=== PATIENT | male | born 1945 | race Caucasian/White ===

== ENCOUNTER 2021-03-09 10:45 | Outpatient (CLI) | payer MEDICARE, OTHER ==
[2021-03-09] MEDS ORDERED: LIDOCAINE 2%-EPI 1:100,000 30 ML VIAL ONE (12:29)
[2021-03-09] MEDS ORDERED: BACI/NEOM/POLY B OINT PKT 1 UDPKT PACKET ONE (12:52)
== END 2021-03-09 23:59 | disposition home health service (06) ==
LOC: WOU 10:45
PROVIDERS: ATTEND Surgery
DX: R22.0 Localized swelling, mass and lump, head (principal); E11.9 Type 2 diabetes mellitus without complications; Z79.4 Long term (current) use of insulin; I10 Essential (primary) hypertension; F03.90 Unspecified dementia, unspecified severity, without behavioral disturbance, psychotic disturbance, mood disturbance, and anxiety
CPT/HCPCS: 11104; 88305; J3490

== ENCOUNTER 2025-01-25 14:27 | Inpatient (IN) | payer MEDICARE, OTHER ==
[2025-01-25] VITALS (13 sets, daily range): BP systolic 116–153; BP diastolic 72–82; TEMP 97.6; O2SAT 98–100
[~2025-01-25] VITALS: Ht 167.6 cm; Wt 49.0 kg
[2025-01-25] MEDS: IV NS 0.9% 1,000 ML BAG IV ONE (15:05)
[2025-01-25] MEDS ORDERED: IPRATROPIUM NEB FS 0.5 MG/2.5 ML AMPUL.NEB ONE (15:06)
[2025-01-25] MEDS ORDERED: ALBUTEROL FS 2.5 MG/3 ML VIAL.NEB ONE (15:06)
[2025-01-25] MEDS: ALBUTEROL FS 2.5 MG/3 ML VIAL.NEB CONTNEB ONE (15:18)
[2025-01-25] MEDS: IPRATROPIUM NEB FS 0.5 MG/2.5 ML AMPUL.NEB NEB ONE (15:18)
[2025-01-25 15:25] LABS: BASOPHILS # (AUTO) 0.1 K/uL (0.0-0.2); BASOPHILS % (AUTO) 0.4 % (0.0-2.0); HEMATOCRIT 37 % (39-51); HEMOGLOBIN 12.5 g/dL (13.5-17.5); LYMPHOCYTES # (AUTO) 1.7 K/uL (0.8-4.8); LYMPHOCYTES % (AUTO) 5.4 % (20.0-44.0); MEAN CORPUSCULAR HEMOGLOBIN 31 PG (26.0-33.0); MEAN CORPUSCULAR HGB CONC 33 g/dl (31.0-36.0); MEAN CORPUSCULAR VOLUME 94 fL (80-96); MONOCYTES # (AUTO) 1.6 K/uL (0.1-1.30); NEUTROPHILS # (AUTO) 27.9 K/uL (1.8-8.9); NEUTROPHILS % (AUTO) 89.2 % (43.0-81.0); RED BLOOD CELL COUNT(AUTO) 3.98 MIL/uL (4.5-6.0); RED CELL DISTRIBUTION WIDTH 20.2 % (11.5-15.0)
[2025-01-25 15:27] LABS: APPEARANCE,URINE TURBID (CLEAR); BILIRUBIN,URINE NEGATIVE (NEGATIVE); BLOOD, URINE NEGATIVE Ery/uL (NEGATIVE); COLOR,URINE YELLOW (YELLOW); KETONES,URINE NEGATIVE (NEGATIVE); LEUKOCYTE ESTERASE ,URINE 3+ (NEGATIVE); NITRITE, URINE NEGATIVE (NEGATIVE); PH,URINE >8.5 (5.0-8.0); PROTEIN,URINE 2+ mg/dl (NEGATIVE); UGLUCOSE NEGATIVE (NEGATIVE); UROBILINOGEN,URINE 0.2 EU/dL (0.2)
[2025-01-25 15:28] LABS: PLATELET COUNT (AUTO) 1347 K/uL (150-450); WHITE BLOOD COUNT (AUTO) 31.3 K/uL (4.3-11.0)
[2025-01-25] MEDS ORDERED: PIPERACI/TAZO 3.375GM/D5W 50ML PB IV ONE (15:31)
[2025-01-25] MEDS ORDERED: methylPREDNISolone SOD SUCC 125 MG/2ML VIAL ONE (15:31)
[2025-01-25] MEDS ORDERED: ACETAMINOPHEN 650 MG/SUPP.RECT RC ONE (15:32)
[2025-01-25 15:35] LABS: INR 1.15 (0.91-1.10); PARTIAL THROMBOPLASTIN TIME 30.3 SEC (24.3-34.3); PROTHROMBIN TIME 12.1 SECS (9.2-11.1)
[2025-01-25 15:38] LABS: ADD URINE CULTURE YES; BACTERIA,URINE Few /HPF (None Seen); MUCUS,URINE Few /LPF (None Seen); SQUAMOUS EPITHELIAL CELL,UR 0-2 /HPF (None Seen); TRIPLE PHOSPHATE CRYSTAL,UR Moderate /HPF (None Seen); URINE AMORPHOUS PHOSPHATES Moderate /HPF (None Seen)
[2025-01-25] MEDS: methylPREDNISolone SOD SUCC 125 MG/2ML VIAL IV ONE (15:41)
[2025-01-25] MEDS: ACETAMINOPHEN 650 MG/SUPP.RECT RC ONE (15:42)
[2025-01-25] MEDS: PIPERACILLIN /TAZOBACTAM 3.375 G in IV D5W 50 ML IV ONE (15:42)
[2025-01-25 15:46] LABS: ALANINE AMINOTRANSFERASE 19 U/L (12-78); ALBUMIN 3.1 g/dL (3.4-5.0); ALKALINE PHOSPHATASE 101 U/L (46-116); ASPARTATE AMINOTRANSFERASE 25 U/L (15-37); BILIRUBIN,DIRECT 0.3 mg/dL (0.0-0.2); CALCIUM, SERUM 9.8 mg/dL (8.5-10.1); CARBON DIOXIDE 27 mmol/L (21-32); CHLORIDE 89 mmol/L (98-107); GLUCOSE 348 mg/dL (74-106); POTASSIUM 4.1 mmol/L (3.5-5.1); SODIUM SERUM 128 mmol/L (136-145); TOTAL PROTEIN, SERUM 9.5 g/dL (6.4-8.2); UREA NITROGEN, BLOOD 18 mg/dL (7-18)
[2025-01-25 15:52] LABS: LACTIC ACID 4.3 mmol/L (0.4-2.0)
[2025-01-25 15:58] LABS: ABG OXYGEN SATURATION 89.2 % (94.0-98.0); ABG PCO2 37.1 mmHg (35.0-48.0); ABG PH 7.415 (7.350-7.450); ABG PO2 58.6 mmHg (83.0-108.0); ABG TOTAL HEMOGLOBIN 10.6 G/dL (13.5-17.5); COHb 0.3 % (0.5-1.5); MetHb 0.1 % (0.0-1.5); O2Hb 88.8 % (94.0-97.0); SITE, ABG LEFT RADIAL
[2025-01-25] MEDS: PROPOFOL 200 MG/20 ML VIAL IV ONE (16:07)
[2025-01-25 16:13] LABS: LYMPHOCYTES % (MANUAL) 6 % (16-48); MONOCYTES % (MANUAL) 4 % (0-11.0); NEUTROPHILS % (MANUAL) 90 (42-76)
[2025-01-25 16:14] LABS: ANISOCYTOSIS 1+; PLATELET ESTIMATE INCREASED
[2025-01-25] MEDS ORDERED: PROPOFOL 100 ML ONE (16:14)
[2025-01-25] MEDS: PROPOFOL 100 ML IV PRN ×2 (16:18→20:07)
[2025-01-25] MEDS ORDERED: ONDANSETRON HCL/PF 4 MG/2 ML VIAL IVP PRN (17:00)
[2025-01-25] MEDS ORDERED: ACETAMINOPHEN 325 MG TABLET PO PRN (17:00)
[2025-01-25] MEDS ORDERED: MORPHINE SULFATE INJ 2 MG/ML DISP.SYRIN IV PRN (17:00)
[2025-01-25] MEDS ORDERED: hydrALAZINE HCL IV 20 MG VIAL IV PRN (17:00)
[2025-01-25] MEDS: DOCUSATE SODIUM LIQ 100 MG/10 ML UDC PO SCH (17:00)
[2025-01-25] MEDS ORDERED: ALBUTEROL FS 2.5 MG/0.5 ML VIAL.NEB NEB PRN (17:00)
[2025-01-25] MEDS ORDERED: DEXTROSE 50%-WATER 50 ML DISP.SYRIN IV PRN (17:00)
[2025-01-25] MEDS ORDERED: HYDR-4076 GT (17:23)
[2025-01-25] MEDS ORDERED: OMEG1600 GT (17:23)
[2025-01-25] MEDS ORDERED: AMLO-213 GT (17:23)
[2025-01-25] MEDS ORDERED: ACET325T53 GT ×2 (17:23)
[2025-01-25] MEDS ORDERED: LEVE500T20 GT (17:23)
[2025-01-25] MEDS ORDERED: MULT-594 GT (17:23)
[2025-01-25] MEDS ORDERED: NUT.237L30 GT (17:23)
[2025-01-25] MEDS ORDERED: GLUC1KIT IM (17:23)
[2025-01-25] MEDS ORDERED: POLY119P17 GT (17:23)
[2025-01-25] MEDS ORDERED: DOCU50LI12 GT (17:23)
[2025-01-25] MEDS ORDERED: FERR325T24 GT (17:23)
[2025-01-25] MEDS ORDERED: GABA250S2 GT (17:23)
[2025-01-25] MEDS ORDERED: HYDR-4303 GT (17:23)
[2025-01-25] MEDS ORDERED: VITS42.53 TP (17:23)
[2025-01-25] MEDS ORDERED: ZINC50TA69 GT (17:23)
[2025-01-25] MEDS ORDERED: INSU100V42 SQ (17:23)
[2025-01-25] MEDS ORDERED: METO25TA6 GT (17:23)
[2025-01-25] MEDS ORDERED: ASPI-1169 GT (17:23)
[2025-01-25] MEDS ORDERED: INSU100I26 SQ (17:23)
[2025-01-25] MEDS ORDERED: FOLI0.8T3 GT (17:23)
[2025-01-25] MEDS ORDERED: CRAN425C6 GT (17:23)
[2025-01-25] MEDS ORDERED: CHOL100062 GT (17:23)
[2025-01-25] MEDS ORDERED: AMIN30LI66 GT (17:23)
[2025-01-25] MEDS ORDERED: LEVO75TA7 GT (17:23)
[2025-01-25] MEDS ORDERED: COLL30OI TP (17:23)
[2025-01-25] MEDS ORDERED: ACET-73 GT (17:23)
[2025-01-25] MEDS ORDERED: SODI473S9 TP (17:23)
[2025-01-25] MEDS ORDERED: ASCO500T10 GT (17:23)
[2025-01-25] MEDS ORDERED: IPRA3AMP23 IH (17:23)
[2025-01-25] MEDS ORDERED: BISA10SU11 RC (17:23)
[2025-01-25 17:49] LABS: ABG BASE EXCESS -1.6 mmol/L (-2.0-3.0); ABG OXYGEN SATURATION 99.6 % (94.0-98.0); ABG PCO2 34.3 mmHg (35.0-48.0); ABG PH 7.429 (7.350-7.450); ABG PO2 253.5 mmHg (83.0-108.0); ABG TOTAL HEMOGLOBIN 11.2 G/dL (13.5-17.5); COHb 0.3 % (0.5-1.5); MetHb 0.4 % (0.0-1.5); O2Hb 98.9 % (94.0-97.0); PEEP,BG 10 cm H2O; SITE, ABG RIGHT RADIAL; VT, ABG 500 mL
[2025-01-25] MEDS: BLOOD SUGAR DIAGNOSTIC 1 EACH STRIP IN SCH (18:00)
[2025-01-25] MEDS: VANCOMYCIN 1 GM in IV D5W 250 ML IV SCH (18:49)
[2025-01-25] MEDS: INSULIN REGULAR, HUMAN 100 UNIT/ML 3 ML VIAL SQ PRN (19:02)
[2025-01-25] MEDS: CEFEPIME 2 GM in IV D5W 100 ML IV SCH (19:58)
[2025-01-25] MEDS ORDERED: IV NS 0.9% 250 ML IV PRN (20:00)
[2025-01-25] MEDS: IPRATROPIUM NEB FS 0.5 MG/2.5 ML AMPUL.NEB NEB SCH (20:02)
[2025-01-25] MEDS: ALBUTEROL FS 2.5 MG/0.5 ML VIAL.NEB HHN SCH (20:02)
[2025-01-25] MEDS: LEVETIRACETAM SOL (5 ML) 100 MG/ML UDC GT SCH (20:13)
[2025-01-25] MEDS: METOPROLOL TARTRATE 25 MG TABLET GT SCH (20:14)
[2025-01-25] MEDS: HEPARIN SODIUM, PORCINE 5000 UNITS/1 ML VIAL SQ SCH (20:18)
[2025-01-25] MEDS ORDERED: PIPERACILLIN /TAZOBACTAM 3.375 G in IV D5W 100 ML IV SCH (21:00)
[2025-01-25] MEDS: INSULIN GLARGINE, 100 UNIT/ML CARTRIDGE SQ SCH (23:59)
[2025-01-26] VITALS (46 sets, daily range): BP systolic 89–151; BP diastolic 57–85; TEMP 97.8–98.7; O2SAT 99–100
[2025-01-26 05:22] LABS: BASOPHILS # (AUTO) 0.1 K/uL (0.0-0.2); BASOPHILS % (AUTO) 0.2 % (0.0-2.0); HEMATOCRIT 32 % (39-51); HEMOGLOBIN 10.7 g/dL (13.5-17.5); LYMPHOCYTES # (AUTO) 0.6 K/uL (0.8-4.8); LYMPHOCYTES % (AUTO) 1.3 % (20.0-44.0); MEAN CORPUSCULAR HEMOGLOBIN 31 PG (26.0-33.0); MEAN CORPUSCULAR HGB CONC 33 g/dl (31.0-36.0); MEAN CORPUSCULAR VOLUME 93 fL (80-96); MONOCYTES # (AUTO) 2.1 K/uL (0.1-1.30); MONOCYTES % (AUTO) 4.5 % (2.0-12.0); NEUTROPHILS # (AUTO) 44.5 K/uL (1.8-8.9); RED BLOOD CELL COUNT(AUTO) 3.47 MIL/uL (4.5-6.0)
[2025-01-26 05:40] LABS: ALBUMIN 2.4 g/dL (3.4-5.0); BILIRUBIN,TOTAL 0.5 mg/dL (0.2-1.0); CALCIUM, SERUM 9.2 mg/dL (8.5-10.1); CREATININE 1.5 mg/dL (0.6-1.3); MAGNESIUM 2.2 mg/dL (1.8-2.4); PHOSPHORUS 2.6 mg/dL (2.5-4.9); POTASSIUM 3.6 mmol/L (3.5-5.1); TOTAL PROTEIN, SERUM 8.1 g/dL (6.4-8.2)
[2025-01-26 06:37] LABS: PLATELET COUNT (AUTO) 1257 K/uL (150-450); WHITE BLOOD COUNT (AUTO) 47.4 K/uL (4.3-11.0)
[2025-01-26 06:46] LABS: LYMPHOCYTES % (MANUAL) 2 % (16-48); MONOCYTES % (MANUAL) 4 % (0-11.0); NEUTROPHILS % (MANUAL) 94 (42-76)
[2025-01-26 06:47] LABS: ANISOCYTOSIS 1+; PLATELET ESTIMATE INCREASED
[2025-01-26] MEDS: AMLODIPINE BESYLATE 10 MG TABLET GT SCH (09:00)
[2025-01-26] MEDS: FERROUS SULFATE (325 MG) 325 MG/TAB TABLET GT SCH (09:06)
[2025-01-26] MEDS: POLYETHYLENE GLYCOL 3350 17 GM POWD.PACK PO SCH (09:06)
[2025-01-26] MEDS: GABAPENTIN 100 MG CAPSULE GT SCH (09:06)
[2025-01-26] MEDS: THERAHONEY GEL 1.5 OZ TUBE TP SCH (09:06)
[2025-01-26] MEDS: LEVOTHYROXINE SODIUM 75 MCG TABLET GT SCH (09:07)
[2025-01-26] MEDS: FOLIC ACID 1 MG TABLET GT SCH (09:07)
[2025-01-26] MEDS: ASPIRIN 81 MG TAB.CHEW GT SCH (09:07)
[2025-01-26] MEDS: IV NS 0.9% 1,000 ML IV PRN (16:00)
[2025-01-26] MEDS ORDERED: IV NS 0.9% 1,000 ML BAG IV SCH (16:30)
[2025-01-26 16:39] LABS: CREATININE, URINE 93.8 MG/DL (30.0-125.0)
[2025-01-26] MEDS: INSULIN REGULAR, HUMAN 100 UNIT/ML 3 ML VIAL SQ PRN (17:09)
[2025-01-26 17:32] LABS: URINE TOTAL PROTEIN 574.9 mg/dL (0-11.9)
[2025-01-26 19:17] LABS: HEMOGLOBIN 8.9 g/dL (13.5-17.5)
[2025-01-26 19:27] LABS: D-DIMER 1.63 mg/L(FEU (0.17-0.50); INR 1.21 (0.91-1.10); PARTIAL THROMBOPLASTIN TIME 31.6 SEC (24.3-34.3); PROTHROMBIN TIME 12.7 SECS (9.2-11.1)
[2025-01-26 20:18] LABS: RHEUMATOID FACTOR SCREEN NEGATIVE (NEGATIVE)
[2025-01-26 20:28] LABS: THYROID STIMULATING HORMONE 7.81 uIU/mL (0.358-3.74)
[2025-01-26] MEDS: PANTOPRAZOLE 40 MG VIAL IV SCH (20:38)
[2025-01-26 22:38] LABS: HEMOGLOBIN 8.9 g/dL (13.5-17.5)
[2025-01-26] MEDS: INSULIN GLARGINE, 100 UNIT/ML CARTRIDGE SQ SCH (23:53)
[2025-01-27] VITALS (40 sets, daily range): BP systolic 98–123; BP diastolic 60–74; TEMP 98–98.5; O2SAT 100
[2025-01-27 02:03] LABS: HEMOGLOBIN 8.7 g/dL (13.5-17.5)
[2025-01-27 04:27] LABS: BASOPHILS # (AUTO) 0.1 K/uL (0.0-0.2); BASOPHILS % (AUTO) 0.2 % (0.0-2.0); HEMATOCRIT 30 % (39-51); HEMOGLOBIN 9.8 g/dL (13.5-17.5); LYMPHOCYTES # (AUTO) 0.9 K/uL (0.8-4.8); LYMPHOCYTES % (AUTO) 2.6 % (20.0-44.0); MEAN CORPUSCULAR HEMOGLOBIN 31 PG (26.0-33.0); MEAN CORPUSCULAR HGB CONC 33 g/dl (31.0-36.0); MEAN CORPUSCULAR VOLUME 94 fL (80-96); MONOCYTES # (AUTO) 2.2 K/uL (0.1-1.30); MONOCYTES % (AUTO) 6.5 % (2.0-12.0); NEUTROPHILS # (AUTO) 30.3 K/uL (1.8-8.9); NEUTROPHILS % (AUTO) 90.7 % (43.0-81.0); RED BLOOD CELL COUNT(AUTO) 3.18 MIL/uL (4.5-6.0); RED CELL DISTRIBUTION WIDTH 20.4 % (11.5-15.0)
[2025-01-27 04:49] LABS: URIC ACID 5.1 mg/dL (2.6-7.2)
[2025-01-27 04:51] LABS: BILIRUBIN,TOTAL 0.4 mg/dL (0.2-1.0); CALCIUM, SERUM 8.5 mg/dL (8.5-10.1); CREATININE 0.9 mg/dL (0.6-1.3); MAGNESIUM 2.1 mg/dL (1.8-2.4); PHOSPHORUS 2.6 mg/dL (2.5-4.9)
[2025-01-27 05:04] LABS: WHITE BLOOD COUNT (AUTO) 33.4 K/uL (4.3-11.0)
[2025-01-27 05:05] LABS: PLATELET COUNT (AUTO) 925 K/uL (150-450)
[2025-01-27 05:49] LABS: ANISOCYTOSIS 1+; BAND % (MANUAL) 1 % (0.0-5.0); BASOPHILS % (MANUAL) 0 % (0.0-2.0); EOSINOPHILS % (MANUAL) 0 % (0-4); LYMPHOCYTES % (MANUAL) 4 % (16-48); MONOCYTES % (MANUAL) 8 % (0-11.0); NEUTROPHILS % (MANUAL) 87 (42-76); PLATELET ESTIMATE INCREASED
[2025-01-27 05:50] LABS: STOMATOCYTES 1+
[2025-01-27] MEDS: PANTOPRAZOLE 40 MG/PACK PACK GT SCH (08:50)
[2025-01-27] MEDS: HYDROXYUREA 500 MG CAPSULE PO SCH (08:51)
[2025-01-27] MEDS: DAKINS QUARTER STRENGTH (0.125%) 480 ML BOTTLE TOP SCH (09:42)
[2025-01-27] MEDS: POTASSIUM CL. PREMIX PERIPHER. 50 ML IV SCH (09:42)
[2025-01-27] MEDS: IV D5/0.45 NACL 1,000 ML IV PRN (12:46)
[2025-01-27] MEDS: GABAPENTIN 100 MG CAPSULE GT SCH (13:00)
[2025-01-27 18:28] LABS: D-DIMER 2.15 mg/L(FEU (0.17-0.50); INR 1.11 (0.91-1.10); PARTIAL THROMBOPLASTIN TIME 29.3 SEC (24.3-34.3); PROTHROMBIN TIME 11.7 SECS (9.2-11.1)
[2025-01-27] MEDS: DOCUSATE SODIUM LIQ 100 MG/10 ML UDC PO SCH (20:14)
[2025-01-27] MEDS: GLUCERNA 1.2 1,000 ML BOTTLE NG PRN (20:20)
[2025-01-28] VITALS (41 sets, daily range): BP systolic 109–136; BP diastolic 61–77; TEMP 97.9–99.7; O2SAT 95–100
[2025-01-28 03:07] LABS: HEPATITIS B SURFACE AB Non Reactive (.)
[2025-01-28 05:12] LABS: IMMUNOGLOBULIN A, SERUM 373 mg/dL (61-437); IMMUNOGLOBULIN G, SERUM 1771 mg/dL (603-1613); IMMUNOGLOBULIN M, SERUM 80 mg/dL (15-143)
[2025-01-28 05:19] LABS: BASOPHILS % (AUTO) 0.1 % (0.0-2.0); EOSINOPHILS % (AUTO) 0.1 % (0.0-6.0); HEMATOCRIT 25 % (39-51); HEMOGLOBIN 8.5 g/dL (13.5-17.5); LYMPHOCYTES # (AUTO) 0.7 K/uL (0.8-4.8); LYMPHOCYTES % (AUTO) 4.1 % (20.0-44.0); MEAN CORPUSCULAR HEMOGLOBIN 31 PG (26.0-33.0); MEAN CORPUSCULAR HGB CONC 33 g/dl (31.0-36.0); MEAN CORPUSCULAR VOLUME 93 fL (80-96); MONOCYTES # (AUTO) 1.6 K/uL (0.1-1.30); MONOCYTES % (AUTO) 9.6 % (2.0-12.0); NEUTROPHILS # (AUTO) 14.1 K/uL (1.8-8.9); NEUTROPHILS % (AUTO) 86.1 % (43.0-81.0); PLATELET COUNT (AUTO) 831 K/uL (150-450); RED BLOOD CELL COUNT(AUTO) 2.73 MIL/uL (4.5-6.0); RED CELL DISTRIBUTION WIDTH 19.9 % (11.5-15.0); WHITE BLOOD COUNT (AUTO) 16.3 K/uL (4.3-11.0)
[2025-01-28 05:48] LABS: CALCIUM, SERUM 8.3 mg/dL (8.5-10.1); CREATININE 0.6 mg/dL (0.6-1.3); MAGNESIUM 1.9 mg/dL (1.8-2.4); PHOSPHORUS 2.1 mg/dL (2.5-4.9); POTASSIUM 3.5 mmol/L (3.5-5.1)
[2025-01-28 05:51] LABS: D-DIMER 1.97 mg/L(FEU (0.17-0.50); INR 1.13 (0.91-1.10); PARTIAL THROMBOPLASTIN TIME 33.2 SEC (24.3-34.3); PROTHROMBIN TIME 11.9 SECS (9.2-11.1)
[2025-01-28 07:07] LABS: FOLIC ACID > 20.0 ng/mL (>3.0)
[2025-01-28 07:07] LABS: PTH, INTACT 16 pg/mL (15-65)
[2025-01-28] MEDS: CEFEPIME 2 GM in IV D5W 100 ML IV SCH (10:04)
[2025-01-28] MEDS: LEVOTHYROXINE SODIUM 75 MCG TABLET GT SCH (10:07)
[2025-01-28 10:34] LABS: ABG BASE EXCESS -0.8 mmol/L (-2.0-3.0); ABG OXYGEN SATURATION 98.8 % (94.0-98.0); ABG PCO2 27.4 mmHg (35.0-48.0); ABG PH 7.511 (7.350-7.450); ABG PO2 128.6 mmHg (83.0-108.0); ABG TOTAL HEMOGLOBIN 10.2 G/dL (13.5-17.5); MetHb 0.2 % (0.0-1.5); O2Hb 98.6 % (94.0-97.0); PEEP,BG 5 cm H2O
[2025-01-28 11:09] LABS: FREE KAPPA LT CHAINS SERUM 41.5 mg/L (3.3-19.4); FREE LAMBDA LT CHAIN SERUM 32.1 mg/L (5.7-26.3); KAPPA/LAMBDA RATIO SERUM 1.29 (0.26-1.65)
[2025-01-28] MEDS: NEUTRA PHOS 1 POWD.PACKET PO ONE (17:35)
[2025-01-29] VITALS (49 sets, daily range): BP systolic 96–128; BP diastolic 49–66; TEMP 97.9–98.6; O2SAT 94–100
[2025-01-29 05:08] LABS: HEPATITIS B CORE AB, TOTAL Negative (Negative)
[2025-01-29 05:20] LABS: BASOPHILS # (AUTO) 0.2 K/uL (0.0-0.2); EOSINOPHILS # (AUTO) 0.1 K/uL (0.0-0.7); EOSINOPHILS % (AUTO) 0.6 % (0.0-6.0); HEMATOCRIT 28 % (39-51); HEMOGLOBIN 9.6 g/dL (13.5-17.5); LYMPHOCYTES # (AUTO) 0.9 K/uL (0.8-4.8); LYMPHOCYTES % (AUTO) 5.2 % (20.0-44.0); MEAN CORPUSCULAR HEMOGLOBIN 32 PG (26.0-33.0); MEAN CORPUSCULAR HGB CONC 34 g/dl (31.0-36.0); MEAN CORPUSCULAR VOLUME 93 fL (80-96); MONOCYTES # (AUTO) 1.1 K/uL (0.1-1.30); MONOCYTES % (AUTO) 6.8 % (2.0-12.0); NEUTROPHILS # (AUTO) 14.4 K/uL (1.8-8.9); NEUTROPHILS % (AUTO) 86.4 % (43.0-81.0); RED BLOOD CELL COUNT(AUTO) 3.03 MIL/uL (4.5-6.0); RED CELL DISTRIBUTION WIDTH 19.4 % (11.5-15.0); WHITE BLOOD COUNT (AUTO) 16.7 K/uL (4.3-11.0)
[2025-01-29 05:34] LABS: PLATELET COUNT (AUTO) 922 K/uL (150-450)
[2025-01-29 05:43] LABS: CALCIUM, SERUM 8.5 mg/dL (8.5-10.1); CREATININE 0.5 mg/dL (0.6-1.3); PHOSPHORUS 2.3 mg/dL (2.5-4.9); POTASSIUM 3.4 mmol/L (3.5-5.1)
[2025-01-29 05:45] LABS: D-DIMER 2.28 mg/L(FEU (0.17-0.50); INR 1.14 (0.91-1.10); PARTIAL THROMBOPLASTIN TIME 32.5 SEC (24.3-34.3)
[2025-01-29 07:10] LABS: *SPE A/G RATIO 0.6 (0.7-1.7); *SPE ALBUMIN 2.4 g/dL (2.9-4.4); *SPE ALPHA-1-GLOBULIN 0.5 g/dL (0.0-0.4); *SPE ALPHA-2-GLOBULIN 0.9 g/dL (0.4-1.0); *SPE BETA GLOBULIN 0.8 g/dL (0.7-1.3); *SPE GLOBULIN, TOTAL 3.8 g/dL (2.2-3.9); *SPE M-SPIKE Not Observed g/dL (Not Observed); *SPE PROTEIN TOTAL 6.2 g/dL (6.0-8.5); *SPEGAMMA GLOBULIN 1.6 g/dL (0.4-1.8)
[2025-01-29 07:10] LABS: *SPE A/G RATIO 0.6 (0.7-1.7); *SPE ALBUMIN 2.3 g/dL (2.9-4.4); *SPE ALPHA-1-GLOBULIN 0.4 g/dL (0.0-0.4); *SPE ALPHA-2-GLOBULIN 0.8 g/dL (0.4-1.0); *SPE BETA GLOBULIN 0.9 g/dL (0.7-1.3); *SPE GLOBULIN, TOTAL 3.8 g/dL (2.2-3.9); *SPE M-SPIKE Not Observed g/dL (Not Observed); *SPE PROTEIN TOTAL 6.1 g/dL (6.0-8.5); *SPEGAMMA GLOBULIN 1.7 g/dL (0.4-1.8)
[2025-01-29] MEDS: POTASSIUM CHLORIDE 20 MEQ POWDER PACKET GT ONE (10:43)
[2025-01-29] MEDS: NEUTRA PHOS 1 POWD.PACKET GT ONE (15:42)
[2025-01-29] MEDS: IV NS 0.9% 1,000 ML IV PRN (21:00)
[2025-01-30] VITALS (33 sets, daily range): BP systolic 93–116; BP diastolic 49–63; TEMP 97.9–98.3; O2SAT 85–100
[2025-01-30 04:57] LABS: D-DIMER 1.62 mg/L(FEU (0.17-0.50); INR 1.15 (0.91-1.10); PARTIAL THROMBOPLASTIN TIME 32.9 SEC (24.3-34.3); PROTHROMBIN TIME 12.1 SECS (9.2-11.1)
[2025-01-30 04:58] LABS: BASOPHILS # (AUTO) 0.1 K/uL (0.0-0.2); BASOPHILS % (AUTO) 0.6 % (0.0-2.0); EOSINOPHILS # (AUTO) 0.2 K/uL (0.0-0.7); EOSINOPHILS % (AUTO) 1.1 % (0.0-6.0); HEMATOCRIT 26 % (39-51); HEMOGLOBIN 8.9 g/dL (13.5-17.5); LYMPHOCYTES # (AUTO) 1.2 K/uL (0.8-4.8); LYMPHOCYTES % (AUTO) 5.6 % (20.0-44.0); MEAN CORPUSCULAR HEMOGLOBIN 32 PG (26.0-33.0); MEAN CORPUSCULAR HGB CONC 34 g/dl (31.0-36.0); MEAN CORPUSCULAR VOLUME 93 fL (80-96); MONOCYTES # (AUTO) 1.4 K/uL (0.1-1.30); MONOCYTES % (AUTO) 6.6 % (2.0-12.0); NEUTROPHILS # (AUTO) 18.8 K/uL (1.8-8.9); NEUTROPHILS % (AUTO) 86.1 % (43.0-81.0); PLATELET COUNT (AUTO) 829 K/uL (150-450); RED BLOOD CELL COUNT(AUTO) 2.83 MIL/uL (4.5-6.0); RED CELL DISTRIBUTION WIDTH 19.2 % (11.5-15.0); WHITE BLOOD COUNT (AUTO) 21.9 K/uL (4.3-11.0)
[2025-01-30 05:06] LABS: CALCIUM, SERUM 8.5 mg/dL (8.5-10.1); CREATININE 0.6 mg/dL (0.6-1.3); MAGNESIUM 1.8 mg/dL (1.8-2.4); PHOSPHORUS 2.8 mg/dL (2.5-4.9); POTASSIUM 3.4 mmol/L (3.5-5.1)
[2025-01-30] MEDS: POTASSIUM CHLORIDE 20 MEQ POWDER PACKET NG SCH (10:29)
[2025-01-31] VITALS (32 sets, daily range): BP systolic 84–128; BP diastolic 43–64; TEMP 97.7–98.7; O2SAT 94–99
[2025-01-31 04:48] LABS: BASOPHILS # (AUTO) 0.1 K/uL (0.0-0.2); BASOPHILS % (AUTO) 0.3 % (0.0-2.0); EOSINOPHILS # (AUTO) 0.1 K/uL (0.0-0.7); EOSINOPHILS % (AUTO) 0.3 % (0.0-6.0); HEMATOCRIT 27 % (39-51); HEMOGLOBIN 8.8 g/dL (13.5-17.5); LYMPHOCYTES # (AUTO) 1.7 K/uL (0.8-4.8); LYMPHOCYTES % (AUTO) 5.8 % (20.0-44.0); MEAN CORPUSCULAR HEMOGLOBIN 30 PG (26.0-33.0); MEAN CORPUSCULAR HGB CONC 33 g/dl (31.0-36.0); MEAN CORPUSCULAR VOLUME 92 fL (80-96); MONOCYTES # (AUTO) 1.9 K/uL (0.1-1.30); MONOCYTES % (AUTO) 6.4 % (2.0-12.0); NEUTROPHILS # (AUTO) 26.2 K/uL (1.8-8.9); NEUTROPHILS % (AUTO) 87.2 % (43.0-81.0); PLATELET COUNT (AUTO) 865 K/uL (150-450); RED BLOOD CELL COUNT(AUTO) 2.91 MIL/uL (4.5-6.0); RED CELL DISTRIBUTION WIDTH 19.3 % (11.5-15.0)
[2025-01-31 04:57] LABS: WHITE BLOOD COUNT (AUTO) 30.1 K/uL (4.3-11.0)
[2025-01-31 05:05] LABS: CALCIUM, SERUM 8.2 mg/dL (8.5-10.1); CREATININE 0.7 mg/dL (0.6-1.3); MAGNESIUM 1.8 mg/dL (1.8-2.4); PHOSPHORUS 2.6 mg/dL (2.5-4.9); POTASSIUM 3.3 mmol/L (3.5-5.1)
[2025-01-31 05:09] LABS: D-DIMER 1.52 mg/L(FEU (0.17-0.50); INR 1.18 (0.91-1.10); PARTIAL THROMBOPLASTIN TIME 33.2 SEC (24.3-34.3); PROTHROMBIN TIME 12.4 SECS (9.2-11.1)
[2025-01-31 07:13] LABS: ANISOCYTOSIS 1+; LYMPHOCYTES % (MANUAL) 5 % (16-48); MONOCYTES % (MANUAL) 3 % (0-11.0); NEUTROPHILS % (MANUAL) 92 (42-76); PLATELET ESTIMATE INCREASED; STOMATOCYTES 1+
[2025-01-31] MEDS: POTASSIUM CHLORIDE 20 MEQ POWDER PACKET GT SCH (07:57)
[2025-01-31] MEDS ORDERED: LORAZEPAM INJ 2 MG/ML VIAL IV PRN (13:00)
[2025-01-31] MEDS: MORPHINE SULFATE PF DRIP 100 MG in IV D5W 96 ML IV PRN (13:37)
[2025-01-31] MEDS: SCOPOLAMINE PATCH 1 MG/72HR TD SCH (13:42)
[2025-01-31] MEDS ORDERED: KEY,NONCONTROL,TO KEEP IN PYXI 1 EA MC ONE (23:49)
[2025-02-01] VITALS: BP 81/45; TEMP 97; O2SAT 91
[2025-02-01 00:31] VITALS: BP 81/45; TEMP 97; O2SAT 51
[2025-02-01 04:00] VITALS: BP_SYST 80; BP_SYST 84; BP_DIAS 41; TEMP 98.6; O2SAT 82
[2025-02-01] MEDS ORDERED: MORPHINE SULFATE INJ 2 MG/ML DISP.SYRIN IV PRN (05:00)
[2025-02-01] MEDS ORDERED: KEY,NONCONTROL,TO KEEP IN PYXI 1 EA MC ONE ×3 (06:30→12:36)
[2025-02-01 08:27] VITALS: BP 66/40; TEMP 98.4; O2SAT 93
[2025-02-01 09:28] LABS: BASOPHILS # (AUTO) 0.3 K/uL (0.0-0.2); BASOPHILS % (AUTO) 0.7 % (0.0-2.0); EOSINOPHILS # (AUTO) 0.3 K/uL (0.0-0.7); EOSINOPHILS % (AUTO) 0.6 % (0.0-6.0); HEMATOCRIT 30 % (39-51); HEMOGLOBIN 9.6 g/dL (13.5-17.5); LYMPHOCYTES # (AUTO) 2.1 K/uL (0.8-4.8); LYMPHOCYTES % (AUTO) 4.5 % (20.0-44.0); MEAN CORPUSCULAR HEMOGLOBIN 31 PG (26.0-33.0); MEAN CORPUSCULAR HGB CONC 32 g/dl (31.0-36.0); MEAN CORPUSCULAR VOLUME 95 fL (80-96); MONOCYTES # (AUTO) 2.7 K/uL (0.1-1.30); MONOCYTES % (AUTO) 5.8 % (2.0-12.0); NEUTROPHILS # (AUTO) 41.2 K/uL (1.8-8.9); NEUTROPHILS % (AUTO) 88.4 % (43.0-81.0); RED BLOOD CELL COUNT(AUTO) 3.15 MIL/uL (4.5-6.0); RED CELL DISTRIBUTION WIDTH 19.8 % (11.5-15.0)
[2025-02-01 09:38] LABS: WHITE BLOOD COUNT (AUTO) 46.5 K/uL (4.3-11.0)
[2025-02-01 09:39] LABS: PLATELET COUNT (AUTO) 986 K/uL (150-450)
[2025-02-01 13:38] LABS: CALCIUM, SERUM 8.6 mg/dL (8.5-10.1); CREATININE 1.3 mg/dL (0.6-1.3); POTASSIUM 4.2 mmol/L (3.5-5.1)
[2025-02-01 15:52] LABS: BAND % (MANUAL) 0 % (0.0-5.0); BASOPHILS % (MANUAL) 0 % (0.0-2.0); EOSINOPHILS % (MANUAL) 0 % (0-4); LYMPHOCYTES % (MANUAL) 5 % (16-48); MONOCYTES % (MANUAL) 9 % (0-11.0); NEUTROPHILS % (MANUAL) 85 (42-76)
[2025-02-01 15:53] LABS: ANISOCYTOSIS 1+; PLATELET ESTIMATE INCREASED
== END 2025-02-01 16:53 | DRG 871 ==
LOC: ER 14:40 → ICU 18:09 → MED 01-31 20:50
PROVIDERS: ADMIT Internal Medicine; ATTEND Internal Medicine
PROC: 5A1945Z Respiratory Ventilation, 24-96 Consecutive Hours (ICD-10-PCS; principal; 2025-01-25)
PROC: 0BH17EZ Insertion of Endotracheal Airway into Trachea, Via Natural or Artificial Opening (ICD-10-PCS; 2025-01-25)
PROC: 5A09357 Assistance with Respiratory Ventilation, Less than 24 Consecutive Hours, Continuous Positive Airway Pressure (ICD-10-PCS; 2025-01-25)
DX: A41.9 Sepsis, unspecified organism (principal); J15.9 Unspecified bacterial pneumonia; L89.154 Pressure ulcer of sacral region, stage 4; J96.01 Acute respiratory failure with hypoxia; R53.2 Functional quadriplegia; J44.0 Chronic obstructive pulmonary disease with (acute) lower respiratory infection; N17.9 Acute kidney failure, unspecified; N39.0 Urinary tract infection, site not specified; F03.94 Unspecified dementia, unspecified severity, with anxiety; E87.20 Acidosis, unspecified; Z99.11 Dependence on respirator [ventilator] status; R64 Cachexia; E87.1 Hypo-osmolality and hyponatremia; G93.49 Other encephalopathy; R65.20 Severe sepsis without septic shock; Z66 Do not resuscitate; Z51.5 Encounter for palliative care; Z20.822 Contact with and (suspected) exposure to COVID-19; Z86.73 Personal history of transient ischemic attack (TIA), and cerebral infarction without residual deficits; M19.90 Unspecified osteoarthritis, unspecified site; E03.9 Hypothyroidism, unspecified; G40.909 Epilepsy, unspecified, not intractable, without status epilepticus; E78.5 Hyperlipidemia, unspecified; Z85.828 Personal history of other malignant neoplasm of skin; Z85.841 Personal history of malignant neoplasm of brain; F41.9 Anxiety disorder, unspecified; F10.10 Alcohol abuse, uncomplicated; Y90.9 Presence of alcohol in blood, level not specified; E86.0 Dehydration; D75.839 Thrombocytosis, unspecified; E86.1 Hypovolemia; R13.10 Dysphagia, unspecified; M89.8X9 Other specified disorders of bone, unspecified site; D64.9 Anemia, unspecified; B96.89 Other specified bacterial agents as the cause of diseases classified elsewhere; Z93.1 Gastrostomy status; G93.0 Cerebral cysts; I10 Essential (primary) hypertension; K21.9 Gastro-esophageal reflux disease without esophagitis; L89.220 Pressure ulcer of left hip, unstageable; Z85.6 Personal history of leukemia; Y95 Nosocomial condition; D72.821 Monocytosis (symptomatic); E87.6 Hypokalemia; Z74.09 Other reduced mobility; E11.65 Type 2 diabetes mellitus with hyperglycemia
CPT/HCPCS: 31720; 36415; 36600; 71045-TC; 71250-TC; 76770-TC; 80048-TC; 80053-TC; 80076-TC; 80202-TC; 81001; 82550-TC; 82570-TC; 82607-TC; 82728-TC; 82784; 82803-TC; 82962-TC; 83540-TC; 83605-TC; 83735-TC; 83970; 84100-TC; 84155; 84165; 84300-TC; 84443-TC; 84484-TC; 84550-TC; 85025-TC; 85027-TC; 85396; 85652-TC; 85730-TC; 86140-TC; 86334; 86431-TC; 86704; 86706; 86803; 87040-TC; 87081-TC; 87186-TC; 87340; 87899; 93307-TC; 93970-TC; 94002-TC; 94003-TC; 94640-TC; 94799-TC; 99082-TC; A4223; A6403; G0378; J0692; J1644; J1815; J1953; J2274; J2470; J2543; J2919; J3370; J3480; J3490; J7030; J7050; J7060

== ENCOUNTER 2025-02-01 17:00 | Inpatient (IN) | payer OTHER ==
[~2025-02-01 17:00] MED LIST: ACET-73 GT; ACET325T53 GT; AMIN30LI66 GT; AMLO-213 GT; ASCO500T10 GT; ASPI-1169 GT; BISA10SU11 RC; CHOL100062 GT; COLL30OI TP; CRAN425C6 GT; DOCU50LI12 GT; FERR325T24 GT; FOLI0.8T3 GT; GABA250S2 GT; GLUC1KIT IM; HYDR-4076 GT; HYDR-4303 GT; INSU100I26 SQ; INSU100V42 SQ; IPRA3AMP23 IH; LEVE500T20 GT; LEVO75TA7 GT; METO25TA6 GT; MULT-594 GT; NUT.237L30 GT; OMEG1600 GT; POLY119P17 GT; SODI473S9 TP; VITS42.53 TP; ZINC50TA69 GT
[2025-02-01] MEDS ORDERED: MORPHINE SULFATE PF DRIP 100 MG in IV D5W 96 ML IV PRN (19:00)
[2025-02-01 19:55] VITALS: BP 71/44; TEMP 99.3; O2SAT 93
[2025-02-01 20:00] VITALS: BP 71/47; TEMP 99.3; O2SAT 93
[2025-02-01] MEDS ORDERED: KEY,NONCONTROL,TO KEEP IN PYXI 1 EA MC ONE (20:19)
[2025-02-01] MEDS: MORPHINE SULFATE PF DRIP 250 MG in IV D5W 240 ML IV PRN (20:30)
[2025-02-01] MEDS: SCOPOLAMINE PATCH 1 MG/72HR TD SCH (21:42)
[2025-02-02 08:00] VITALS: BP 71/41; TEMP 97.7; O2SAT 96
[2025-02-02] MEDS ORDERED: KEY,NONCONTROL,TO KEEP IN PYXI 1 EA MC ONE ×2 (09:20→22:11)
[2025-02-02] MEDS: LORAZEPAM INJ 2 MG/ML VIAL IV PRN (14:13)
[2025-02-02 16:00] VITALS: BP 70/35; TEMP 97.1; O2SAT 94
[2025-02-02 20:00] VITALS: BP 71/36; TEMP 97.9; O2SAT 98
[2025-02-03 04:30] VITALS: BP 77/37; TEMP 97.9; O2SAT 100
[2025-02-03 08:00] VITALS: BP 69/36; TEMP 98; O2SAT 98
[2025-02-03] MEDS ORDERED: KEY,NONCONTROL,TO KEEP IN PYXI 1 EA MC ONE ×3 (11:22→21:47)
[2025-02-03 13:00] VITALS: BP 79/36; TEMP 97.4; O2SAT 93
[2025-02-03 16:00] VITALS: BP 79/42; TEMP 97.9; O2SAT 98
[2025-02-03 20:00] VITALS: BP 79/39; TEMP 98.1; O2SAT 96
[2025-02-03] MEDS: MORPHINE SULFATE PF DRIP 250 MG in IV D5W 240 ML IV PRN (21:49)
[2025-02-04 06:30] VITALS: BP 95/43; TEMP 98.6; O2SAT 98
[2025-02-04] MEDS ORDERED: KEY,NONCONTROL,TO KEEP IN PYXI 1 EA MC ONE ×2 (10:29→23:08)
[2025-02-04 20:00] VITALS: BP 108/51; TEMP 97.5; O2SAT 97
[2025-02-05 11:10] VITALS: BP 112/59; TEMP 98.3; O2SAT 100
[2025-02-05 12:14] VITALS: BP 113/57; TEMP 98.6; O2SAT 100
[2025-02-05 16:07] VITALS: BP 112/54; TEMP 97.9; O2SAT 100
[2025-02-05] MEDS: LORAZEPAM INJ 2 MG/ML VIAL IV PRN (19:11)
[2025-02-05 20:00] VITALS: BP 105/57; TEMP 98.4; O2SAT 96
[2025-02-06] MEDS ORDERED: KEY,NONCONTROL,TO KEEP IN PYXI 1 EA MC ONE ×3 (00:29→14:35)
[2025-02-06] MEDS ORDERED: LEVETIRACETAM (500MG) 500 MG in IV NS 0.9% 100 ML IV SCH (17:00)
[2025-02-06] MEDS: LEVETIRACETAM (500MG) 500 MG in IV NS 0.9% 100 ML IV SCH (17:53)
[2025-02-06 20:00] VITALS: BP_SYST 124; BP_SYST 99; BP_DIAS 60; BP_DIAS 69; TEMP 98.1; TEMP 98.6; O2SAT 93; O2SAT 97
[2025-02-07] MEDS ORDERED: KEY,NONCONTROL,TO KEEP IN PYXI 1 EA MC ONE (02:30)
[2025-02-07 07:00] VITALS: BP 106/52; TEMP 99; O2SAT 94
[2025-02-07] MEDS: KEY,NONCONTROL,TO KEEP IN PYXI 1 EA MC ONE (13:54)
[2025-02-07] MEDS: LEVETIRACETAM (500MG) 500 MG in IV NS 0.9% 100 ML IV SCH (14:03)
[2025-02-07 16:00] VITALS: BP 138/57; TEMP 98.9; O2SAT 96
[2025-02-08] MEDS: KEY,NONCONTROL,TO KEEP IN PYXI 1 EA MC ONE ×2 (01:40→14:48)
[2025-02-08 08:53] VITALS: BP 168/110; TEMP 98.6; O2SAT 90
[2025-02-08 12:00] VITALS: BP 97/62; TEMP 98.2; O2SAT 90
[2025-02-08 16:04] VITALS: BP 100/49; TEMP 98.9; O2SAT 98
[2025-02-08 20:00] VITALS: BP 110/57; TEMP 98.2; O2SAT 94
[2025-02-09] MEDS ORDERED: KEY,NONCONTROL,TO KEEP IN PYXI 1 EA MC ONE (03:03)
[2025-02-09 08:00] VITALS: BP 125/100; TEMP 98.1; O2SAT 94
[2025-02-09] MEDS: KEY,NONCONTROL,TO KEEP IN PYXI 1 EA MC ONE ×2 (17:18→19:27)
[2025-02-09 20:00] VITALS: BP 150/99; TEMP 97.5; O2SAT 94
[2025-02-10] MEDS ORDERED: KEY,NONCONTROL,TO KEEP IN PYXI 1 EA MC ONE ×2 (04:11→05:20)
[2025-02-10 08:00] VITALS: BP 110/83; TEMP 98.2; O2SAT 92
[2025-02-10 10:00] VITALS: BP 110/83; TEMP 98.2; O2SAT 92
[2025-02-10 16:00] VITALS: BP 216/203; TEMP 98.8; O2SAT 92
[2025-02-10 20:00] VITALS: BP 166/100; TEMP 98.1; O2SAT 94
[2025-02-11] MEDS ORDERED: KEY,NONCONTROL,TO KEEP IN PYXI 1 EA MC ONE ×2 (06:14→15:19)
== END 2025-02-11 15:25 | DRG 720 ==
LOC: HOSPICE 17:00
DX: A41.9 Sepsis, unspecified organism (principal); J96.01 Acute respiratory failure with hypoxia; E87.20 Acidosis, unspecified; J15.9 Unspecified bacterial pneumonia; N17.9 Acute kidney failure, unspecified; R53.2 Functional quadriplegia; R56.9 Unspecified convulsions; E87.1 Hypo-osmolality and hyponatremia; E86.0 Dehydration; E86.1 Hypovolemia; R65.20 Severe sepsis without septic shock; D75.839 Thrombocytosis, unspecified; D64.9 Anemia, unspecified; N39.0 Urinary tract infection, site not specified; B96.89 Other specified bacterial agents as the cause of diseases classified elsewhere; Z86.73 Personal history of transient ischemic attack (TIA), and cerebral infarction without residual deficits; I10 Essential (primary) hypertension; E11.9 Type 2 diabetes mellitus without complications; E03.9 Hypothyroidism, unspecified; Z66 Do not resuscitate; Z51.5 Encounter for palliative care; Y95 Nosocomial condition
CPT/HCPCS: 82962-TC; A4223; A6253; A6403; G0378; J1953; J2060; J2274; J7030; J7050; J7060